=== PATIENT | male | born 1995 | race Caucasian/White ===

== ENCOUNTER 2019-04-26 19:43 | Emergency (ER) | payer BC ==
[2019-04-26 20:23] VITALS: BP 120/67
--- NOTE | 2019-04-26 20:51 | EDM.PDOC ---
ED HPI GENERAL MEDICAL PROBLEM - General Chief Complaint: Skin Complaint Stated Complaint: rash Time Seen by Provider: 04/26/19 19:48 Source of Information: Reports: Patient History Limitations: Reports: No Limitations - History of Present Illness INITIAL COMMENTS - FREE TEXT/NARRATIVE: Noticed a rash coming on to the umbilical area; it is not located anywhere else. He denies pain. States it started early this am; he works night shifts and noticed it this am when he took a shower; denies pain or itching, feels like a burn when he touches it or with any contact. He hasn't tried any prior treatments. No blisters, no weeping. Duration: Day(s): (one day) Location: Reports: Abdomen Quality: Reports: Burning Severity: Mild Improves with: Reports: None Worsens with: Reports: None - Related Data Allergies Allergy/AdvReac Type Severity Reaction Status Date / Time amoxicillin [Amoxicillin] Allergy Hives Verified 04/26/19 20:29 Home Meds: Home Meds valACYclovir [Valtrex] 500 mg PO ASDIRECTED PRN 04/26/19 [History] Past Medical History - Past Health History Medical/Surgical History: Denies Medical/Surgical History Genitourinary History: Reports: STD Other Genitourinary History: herpes Musculoskeletal History: Reports: Fracture Social & Family History - Tobacco Use Smoking Status *Q: Current Every Day Smoker Years of Tobacco use: 10 Packs/Tins Daily: 1 - Caffeine Use Caffeine Use: Reports: Coffee - Recreational Drug Use Recreational Drug Use: No ED ROS GENERAL - Review of Systems Review Of Systems: See Below Respiratory: Reports: No Symptoms Cardiovascular: Reports: No Symptoms GI/Abdominal: Reports: No Symptoms : Reports: No Symptoms Musculoskeletal: Reports: No Symptoms Skin: Reports: Rash Neurological: Reports: No Symptoms Psychiatric: Reports: No Symptoms ED EXAM, SKIN/RASH Exam: See Below Exam Limited By: No Limitations General Appearance: Alert, WD/WN, No Apparent Distress Head: Atraumatic, Normocephalic Neck: Normal Inspection, Supple, Non-Tender, Full Range of Motion Respiratory/Chest: No Respiratory Distress, Lungs Clear, Normal Breath Sounds Cardiovascular: Normal Peripheral Pulses, Regular Rate, Rhythm Extremities: Normal Range of Motion Neurological: Alert, Oriented, CN II-XII Intact, Normal Cognition, Normal Gait Skin: Warm, Dry, Intact, Rash (small, red, non raised rash to the umbilical area ; no where else) Location, Skin: Other (just below umbilicus) Characteristics: Fine, Erythematous Associated features: Rough Course - Vital Signs Last Recorded V/S: Last Vital Signs Temp 98.0 F 04/26/19 20:36 Pulse 55 L 04/26/19 20:36 Resp 16 04/26/19 20:36 BP 120/67 04/26/19 20:36 Pulse Ox 98 04/26/19 20:36 Departure - Departure Time of Disposition: 20:45 Disposition: Home, Self-Care 01 Condition: Good Clinical Impression: Contact dermatitis, Atopic dermatitis - Discharge Information *PRESCRIPTION DRUG MONITORING PROGRAM REVIEWED*: Not Applicable *COPY OF PRESCRIPTION DRUG MONITORING REPORT IN PATIENT MARY: Not Applicable Instructions: Atopic Dermatitis Referrals: Gerber Oakley NP [Primary Care Provider] - Forms: ED Department Discharge Additional Instructions: Follow up as needed - Problem List & Annotations (1) Contact dermatitis SNOMED Code(s): 17134540 Code(s): L25.9 - UNSPECIFIED CONTACT DERMATITIS, UNSPECIFIED CAUSE Status: Acute Priority: Low Current Visit: Yes Qualifiers: Contact dermatitis type: unspecified - Problem List Review Problem List Initiated/Reviewed/Updated: Yes
== END 2019-04-26 21:10 | disposition home or self-care (01) ==
LOC: JP.ED 19:43
DX: L25.9 Unspecified contact dermatitis, unspecified cause (principal); L20.9 Atopic dermatitis, unspecified; F17.210 Nicotine dependence, cigarettes, uncomplicated; Z88.1 Allergy status to other antibiotic agents
CPT/HCPCS: 99282